=== PATIENT | female | born 1980 | race Caucasian/White ===

== ENCOUNTER 2020-05-12 12:42 | Day surgery (SDC) | payer BC, OTHER ==
[~2020-05-12] VITALS: Ht 162.6 cm; Wt 95.4 kg
[2020-05-12] MEDS ORDERED: CHLORHEXIDINE 15 ML UDC MM STA (14:03)
[2020-05-12] MEDS ORDERED: LACTATED RINGERS 1,000 ML IV SCH (14:03)
[2020-05-12 14:04] VITALS: BP 127/84
[2020-05-12 14:11] LABS: HCG UR SG 1.021 (1.003-1.030)
[2020-05-12] MEDS ORDERED: IBUP-1223 PO (14:38)
[2020-05-12] MEDS ORDERED: FLUO40CA9 PO (14:38)
[2020-05-12] MEDS ORDERED: PHEN37.53 PO (14:38)
[2020-05-12] MEDS ORDERED: THROMBIN 5,000 UNIT VIAL TP ONE (15:14)
[2020-05-12] MEDS ORDERED: VANCOMYCIN 1,000 MG ONE (15:14)
[2020-05-12] MEDS ORDERED: BACITRACIN 50,000 UNIT ONE (15:14)
[2020-05-12] MEDS ORDERED: BUPIVACAINE/PF 0.5% ONE (15:15)
[2020-05-12] MEDS ORDERED: MINERAL OIL 10 ML VIAL MC ONE (15:15)
[2020-05-12] MEDS ORDERED: EPINEPHRINE 1 MG/ML, 1ML ONE (15:15)
[2020-05-12] MEDS ORDERED: FENTANYL PF 250 MCG/5ML ONE (15:21)
[2020-05-12] MEDS ORDERED: MIDAZOLAM 1 MG/ML, 2ML ONE (15:21)
[2020-05-12] MEDS ORDERED: DEXAMETHASONE 4 MG/ML, 1ML ONE ×2 (15:23→15:24)
[2020-05-12] MEDS ORDERED: ONDANSETRON 2MG/ML, 2ML ONE ×2 (15:23→15:24)
[2020-05-12] MEDS ORDERED: ROCURONIUM 10 MG/ML,10ML ONE (15:24)
[2020-05-12] MEDS ORDERED: PROPOFOL 10 MG/ML, 20ML ONE (15:24)
[2020-05-12] MEDS ORDERED: CEFAZOLIN 1,000 MG ONE ×2 (15:24→15:37)
[2020-05-12] MEDS ORDERED: KETOROLAC 30 MG/1 ML ONE (15:37)
[2020-05-12] MEDS ORDERED: OXYcodone 5 MG/5 ML ORAL.SOL UDC PO PRN (16:00)
[2020-05-12] MEDS ORDERED: ONDANSETRON 2MG/ML, 2ML IVPush PRN (16:00)
[2020-05-12] MEDS ORDERED: PROMETHAZINE 12.5 MG SUPP PR PRN (16:00)
[2020-05-12] MEDS ORDERED: PROMETHAZINE 25 MG/ML, 1ML IVPush PRN (16:00)
[2020-05-12] MEDS ORDERED: MIDAZOLAM 1 MG/ML, 2ML IV PRN (16:00)
[2020-05-12] MEDS ORDERED: LABETALOL 5MG/ML, 20ML IV PRN (16:00)
[2020-05-12] MEDS ORDERED: MEPERIDINE/PF 25MG/0.5ML IVPush PRN (16:00)
[2020-05-12] MEDS ORDERED: EPHEDRINE 50 MG/ML, 1ML IVPush PRN (16:00)
[2020-05-12] MEDS ORDERED: DIPHENHYDRAMINE 50 MG/ML, 1ML IVPush PRN (16:00)
[2020-05-12] MEDS ORDERED: hydrALAzine 20 MG/ML, 1ML IV PRN (16:00)
[2020-05-12] MEDS ORDERED: ALBUTEROL SULFATE 2.5 MG/3 ML NPPB PRN (16:00)
[2020-05-12] MEDS ORDERED: ACETAMINOPHEN 325 MG TABLET PO PRN (16:00)
[2020-05-12] MEDS ORDERED: methylPREDNISolone SOD SUCC 125 MG/2 ML ONE (16:25)
[2020-05-12] MEDS ORDERED: FENTANYL PF 100 MCG/2ML ONE ×4 (16:25→19:13)
[2020-05-12] MEDS ORDERED: SUGAMMADEX 200 MG/2 ML IVPush ONE (17:26)
[2020-05-12] MEDS ORDERED: MEPERIDINE/PF 25MG/ML,1ML ONE (18:17)
[2020-05-12] MEDS ORDERED: OXYcodone 5 MG/5 ML ORAL.SOL UDC ONE (18:18)
[2020-05-12] MEDS ORDERED: HYDROmorphone 1 MG/ML, 1ML INJ ONE ×2 (18:26→19:13)
[2020-05-12] MEDS: FENTANYL PF 100 MCG/2ML IV PRN ×4 (18:33→19:29)
[2020-05-12] MEDS: HYDROmorphone 1 MG/ML, 1ML INJ IVPush PRN ×4 (18:36→19:46)
[2020-05-12] MEDS ORDERED: DIAZEPAM 5 MG/ML, 2ML ONE (19:28)
[2020-05-12] MEDS: DIAZEPAM 5 MG/ML, 2ML IVPush PRN ×2 (19:32→19:50)
== END 2020-05-12 22:30 | disposition home or self-care (01) ==
LOC: OUT 12:42 → EDSTATUS 15:30 → 4NE 20:50 → OUT 22:30
PROVIDERS: ATTEND Neurological Surgery
DX: M48.07 Spinal stenosis, lumbosacral region (principal); M51.26 Other intervertebral disc displacement, lumbar region; F41.9 Anxiety disorder, unspecified; F32.9 Major depressive disorder, single episode, unspecified; E66.9 Obesity, unspecified; Z88.1 Allergy status to other antibiotic agents; Z88.8 Allergy status to other drugs, medicaments and biological substances; Z68.36 Body mass index [BMI] 36.0-36.9, adult; Z79.899 Other long term (current) drug therapy; Z98.890 Other specified postprocedural states; Z83.3 Family history of diabetes mellitus
CPT/HCPCS: 63047; 63048; 72100; 81025; J0171; J0690; J1100; J1170; J1885; J2175; J2250; J2405; J2704; J2930; J3010; J3360; J3370; J7120; G0378